=== PATIENT | male | born 1965 | race Hispanic/Latino ===

== ENCOUNTER 2018-05-10 13:39 | Observation (INO) | payer OTHER, BC ==
[2018-05-10 13:39] VITALS: BMI 42.3
[2018-05-10 14:03] LABS: BASO # 0.01 K/mm3 (0.0-2.0); BASO % 0.1 % (0.0-3.0); EOS # 0.2 (0.0-0.7); EOS % 1.6 % (1.5-5.0); GRAN # 6.44 (1.4-6.5); HEMOGLOBIN 14.5 g/dL (14.0-18.0); LYMPH # 3.1 (1.2-3.4); LYMPH % 30.5 % (22.0-35.0); MEAN CELL VOLUME 87.1 fl (80.0-105.0); MEAN CORPUSCULAR HEMOGLOBIN 29.6 pg (25.0-35.0); MEAN PLATELET VOLUME 10.1 fl (7.0-11.0); MONO # 0.5 (0.1-0.6); MONO % 4.8 % (1.0-6.0); RBC 4.9 10^6/uL (3.5-6.1); RED CELL DISTRIBUTION WIDTH 13.2 % (11.5-14.5); WHITE BLOOD COUNT 10.2 10^3/ul (4.5-11.0)
--- NOTE | 2018-05-10 14:17 | RAD ---
Date of service: 05/10/2018 HISTORY: chest pain COMPARISON: No prior. FINDINGS: LUNGS: No active pulmonary disease. PLEURA: No significant pleural effusion identified, no pneumothorax apparent. CARDIOVASCULAR: Normal. OSSEOUS STRUCTURES: No significant abnormalities. VISUALIZED UPPER ABDOMEN: Normal. OTHER FINDINGS: None. IMPRESSION: No active disease.
--- NOTE | 2018-05-10 14:21 | ED PDOC ---
Arrival/HPI - General Chief Complaint: Chest Pain Time Seen by Provider: 05/10/18 13:45 Historian: Patient - History of Present Illness Narrative History of Present Illness (Text): 05/10/18 14:18 Donald Mcdaniel is a 52 year old male, whose past medical history includes hypertension, stress test performed 2-3 years ago, and catherization from 2 years ago, who presents to the Emergency Department complaining of intermittent left sided chest tightness that started 12 hours ago. As per patient, symptoms worsened this morning associated with pins and needles in left arm prior to arrival. Patient informs discomfort with movement of left arm to the right side. Patient informs he took 324 mg of Aspirin with mild relief. Patient denies any fever, chills, shortness of breath, nausea, vomiting, diarrhea, jaw pain, back pain, neck pain, headache, dizziness, or any other complaints. Patient notes occasional drinking, but denies smoking or substance abuse. Patient is right hand dominant. PMD: Dr. Ferreira Switch Operator: Dr. Kurtz and Dr. Osuna Time/Duration: Other (12 hours ) Symptom Onset: Gradual Symptom Course: Unchanged Quality: Tightness Activities at Onset: Light Past Medical History - Provider Review Nursing Documentation Reviewed: Yes - Past History Past History: No Previous - Tetanus Immunization Tetanus Immunization: Unknown - Cardiac Hx Cardiac Disorders: Yes Hx Hypertension: Yes - Pulmonary Hx Respiratory Disorders: No - Neurological Hx Neurological Disorder: No - HEENT Hx HEENT Disorder: No - Renal Hx Renal Disorder: No - Endocrine/Metabolic Hx Endocrine Disorders: No - Hematological/Oncological Hx Blood Disorders: No - Integumentary Hx Dermatological Disorder: No - Musculoskeletal/Rheumatological Hx Musculoskeletal Disorders: No - Gastrointestinal Hx Gastrointestinal Disorders: No - Genitourinary/Gynecological Hx Genitourinary Disorders: No - Psychiatric Hx Psychophysiologic Disorder: No Hx Substance Use: No - Surgical History Hx Musculoskeletal Surgery: Yes (l knee/r ankle) - Anesthesia Hx Anesthesia Reactions: No Hx Malignant Hyperthermia: No - Suicidal Assessment Feels Threatened In Home Enviroment: No Family/Social History - Physician Review Nursing Documentation Reviewed: Yes Family/Social History: Unknown Family HX Smoking Status: Never Smoked Hx Alcohol Use: Yes (occassional) Hx Substance Use: No Hx Substance Use Treatment: No Allergies/Home Meds Allergies/Adverse Reactions: Allergies peanut Allergy (Verified 05/10/18 13:44) ANAPHYLAXIS Home Medications: Home Meds Medication Instructions Recorded Confirmed Valsartan [Diovan] 160 mg PO DAILY 09/24/15 05/10/18 Review of Systems - Physician Review All systems were reviewed & negative as marked: Yes - Review of Systems Constitutional: Normal. absent: Fevers Eyes: Normal ENT: Normal Respiratory: Normal. absent: SOB Cardiovascular: Chest Pain (tightness in left chest) Gastrointestinal: Normal. absent: Abdominal Pain, Diarrhea, Nausea, Vomiting Genitourinary Male: Normal Musculoskeletal: Other (pins and needles in left arm). absent: Back Pain, Neck Pain Skin: Normal Neurological: Normal. absent: Headache Endocrine: Normal Hemo/Lymphatic: Normal Psychiatric: Normal Physical Exam Vital Signs Reviewed: Yes Vital Signs Temp Pulse Pulse Resp BP BP Pulse Ox 05/10/18 16:04 98.0 F 56 L 19 94 L 05/10/18 15:59 98.0 F 60 18 105/66 94 L 05/10/18 13:48 98.2 F 73 18 126/68 96 05/10/18 13:45 63 126/68 Temperature: Afebrile Blood Pressure: Normal Pulse: Regular Respiratory Rate: Normal Appearance: Positive for: Well-Appearing, Non-Toxic, Comfortable Pain Distress: Mild Mental Status: Positive for: Alert and Oriented X 3 - Systems Exam Head: Present: Atraumatic, Normocephalic Pupils: Present: PERRL Extroacular Muscles: Present: EOMI Conjunctiva: Present: Normal Neck: Present: Normal Range of Motion Respiratory/Chest: Present: Clear to Auscultation, Good Air Exchange. No: Respiratory Distress, Accessory Muscle Use Cardiovascular: Present: Regular Rate and Rhythm, Normal S1, S2. No: Murmurs Abdomen: No: Tenderness, Distention, Peritoneal Signs Upper Extremity: Present: Normal Inspection. No: Cyanosis, Edema Lower Extremity: Present: Normal Inspection. No: Edema Neurological: Present: GCS=15, CN II-XII Intact, Speech Normal Skin: Present: Warm, Dry, Normal Color. No: Rashes Psychiatric: Present: Alert, Oriented x 3, Normal Insight, Normal Concentration Medical Decision Making ED Course and Treatment: 05/10/18 14:18 Impression: Donald Mcdaniel is a 52 year old male who presents to the Emergency Department for left sided chest tightness and sharp pain in left arm prior to arrival. Plan: -- EKG -- Labs -- X-Ray of chest -- Aspirin -- Reassess and disposition Prior Visits: Notes and results from previous visits were reviewed. Patient presented to emergency room on 09/24/15 for intermittent chest pain and was admitted to the hospital for observation. Progress Notes: 05/10/18 14:39 EKG: Ordered, reviewed, and independently interpreted the EKG. Rate : 68 BPM Rhythm : NSR Interpretation : No ST-segment elevations or depressions, no T-wave inversions, normal intervals. Normal axis. 05/10/18 14:50 Chest X-Ray reviewed by radiologist, shows: No active disease. - Lab Interpretations Lab Results: 05/10/18 13:55 05/10/18 13:55 Lab Results 05/10/18 13:55: Sodium 145, Potassium 4.2, Chloride 102, Carbon Dioxide 27, Anion Gap 20, BUN 12, Creatinine 0.9, Est GFR ( Amer) > 60, Est GFR (Non- Af Amer) > 60, Random Glucose 107, Calcium 9.9, Magnesium 2.3 H, Total Bilirubin 0.7, AST 25, ALT 31, Alkaline Phosphatase 84, Lactate Dehydrogenase 408, Total Creatine Kinase 151, Troponin I 0.01, Total Protein 8.4 H, Albumin 4.9 H, Globulin 3.4, Albumin/Globulin Ratio 1.4 05/10/18 13:55: WBC 10.2 D, RBC 4.90, Hgb 14.5, Hct 42.7, MCV 87.1, MCH 29.6, MCHC 34.0, RDW 13.2, Plt Count 243, MPV 10.1, Gran % 63.0, Lymph % (Auto) 30.5, [place] % (Auto) 4.8, Eos % (Auto) 1.6, Baso % (Auto) 0.1, Gran # 6.44, Lymph # ( Auto) 3.1, [place] # (Auto) 0.5, Eos # (Auto) 0.2, Baso # (Auto) 0.01 - RAD Interpretation Radiology Orders: 05/10/18 13:49 CHEST PORTABLE [RAD] Stat - EKG Interpretation Interpreted by ED Physician: Yes Type: 12 lead EKG - Medication Orders Current Medication Orders: Acetaminophen (Tylenol 325mg Tab) 650 mg PO Q6H PRN PRN Reason: Fever >100.4 F Alprazolam (Xanax) 0.5 mg PO HS [facility] PRN Reason: Protocol Last Admin: 05/10/18 22:02 Dose: 0.5 mg Behavioural Document 05/10/18 22:02 [facility] (Rec: 05/10/18 22:02 [facility] [id number]) Maintenance Maintenance Dose Yes Behavior Behavior for Medication: Anxiety Aspirin (Ecotrin) 81 mg PO DAILY [facility] Losartan Potassium (Cozaar) 50 mg PO DAILY [facility] Metoprolol Succinate (Toprol Xl) 25 mg PO BRK [facility] Last Admin: 05/10/18 22:01 Dose: 25 mg MAR Pulse and Blood Pressure Document 05/10/18 22:01 [facility] (Rec: 05/10/18 22:02 [facility] [id number]) Pulse Pulse Rate (60-90) 68 Blood Pressure Blood Pressure (100/60-150/90) 136/75 Naproxen (Anaprox Ds) 550 mg PO BID [facility] Last Admin: 05/10/18 22:01 Dose: 550 mg Ondansetron HCl (Zofran Inj) 4 mg IVP Q6H PRN PRN Reason: Nausea/Vomiting Pantoprazole Sodium (Protonix Ec Tab) 40 mg PO 0630 [facility] Discontinued Medications Aspirin (Aspirin) 325 mg PO STAT ST[facility] Stop: 05/10/18 13:49 Last Admin: 05/10/18 14:04 Dose: Not Given Non-Admin Reason: Patient Refused - Scribe Statement The provider has reviewed the documentation as recorded by the Phanibmatt Moreno, training with Taarn Queen. All medical record entries made by the Phanibmatt were at my direction and personally dictated by me. I have reviewed the chart and agree that the record accurately reflects my personal performance of the history, physical exam, medical decision making, and the department course for this patient. I have also personally directed, reviewed, and agree with the discharge instructions and disposition. Disposition/Present on Arrival - Present on Arrival Any Indicators Present on Arrival: No History of DVT/PE: No History of Uncontrolled Diabetes: No Urinary Catheter: No History of Decub. Ulcer: No History Surgical Site Infection Following: None - Disposition Have Diagnosis and Disposition been Completed?: Yes Diagnosis: Chest pain Disposition: HOSPITALIZED Disposition Time: 15:10 Condition: STABLE
[2018-05-10 14:40] LABS: BLOOD UREA NITROGEN 12 mg/dL (7-21); GFR AFRICAN-AMERICAN > 60; GFR NON-AFRICAN AMERICAN > 60
[2018-05-10 14:41] LABS: ALBUMIN 4.9 g/dL (3.0-4.8); CALCIUM 9.9 mg/dL (8.4-10.5)
[2018-05-10 14:42] LABS: ALB/GLOB RATIO 1.4 (1.1-1.8); ALT/SGPT 31 U/L (7-56); AST/SGOT 25 U/L (17-59)
[2018-05-10 14:43] LABS: TROPONIN I 0.01 ng/mL
--- NOTE | 2018-05-10 18:33 | CARD ---
APPROVED REPORT Date of service: 05/10/2018 EKG Measurement Heart [id number] <Conclusion> Normal sinus rhythm Normal ECG
[2018-05-10] MEDS: Naproxen 550 mg Tab PO SCH (22:01)
[2018-05-10] MEDS: Metoprolol Succinate 25 mg XL Tab PO SCH (22:01)
--- NOTE | 2018-05-11 04:28 | CON ---
DATE: 05/10/2018 SERVICE: Cardiology. REASON FOR THE CONSULTATION AND FOLLOWUP: Chest pain, cardiac evaluation. 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 PAST HISTORY: Significant for hypertension, hyperlipidemia, obesity. FAMILY HISTORY: Significant for mother had coronary artery disease at age of 60 and put a stent. Father had congestive heart failure at age of 80, was a smoker. CURRENT MEDICATION: Patient is taking Diovan 160 mg daily, Xanax at the bedtime. SOCIAL HISTORY: Denies any history of alcohol abuse. 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 PREVIOUS CARDIAC WORKUP: As follows. Patient had a cardiac catheterization in 10/2015 because stress test was abnormal because of high profile and patient having chest pain, so underwent cardiac catheterization that revealed essentially normal coronaries, except distal LAD with diffuse , but no flow obstructive stenosis noted, preserved LV with ejection fraction of 55-60%, EDP was in the range of 15 to 18 mmHg. Hypertensive heart disease dated 10/27/2015. RECOMMENDATIONS: Aggressive medical treatment, emphasis weight reduction and medical treatment was recommended, dated 10/27/2015. Previous cardiac workup as follows. Patient had a cardiac catheterization on 10/27/2015 that showed essentially normal coronary. Patient had echocardiography done on 09/25/2015 that revealed normal chamber size, ejection fraction 55%, trace FL, trace TR, RV systolic pressure 32. REVIEW OF SYSTEMS: As per HPI. CURRENT MEDICATIONS: Patient is taking valsartan (Diovan) 160 mg. ALLERGIES: No known drug allergy. PHYSICAL EXAMINATION: As follows. VITAL SIGNS: Height of the patient is 5 feet . Weight of the patient is 285 pounds. Body mass index 40.99 kg/m2. Rest of the examination shows temperature afebrile, heart rate 72, blood pressure 118/79. HEENT: PERRLA. Extraocular muscles are intact. NECK: Supple. No carotid bruit or thyromegaly. CHEST: Clear to auscultation. HEART: S1 and S2 regular. ABDOMEN: Soft. EXTREMITIES: Clubbing and cyanosis negative. LABORATORY DATA: Blood workup as follows: WBC 10.8, hemoglobin 14.5, hematocrit 42.7, platelet count 243. Chemistry showed sodium 145, potassium 4.2, chloride , carbon dioxide 27, anion gap of 20, BUN 12, creatinine 0.9. Troponin is 0.01. EKG; normal sinus, no acute ST-T changes noted. 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 Denies any diaphoresis. History of cardiac catheterization 2 years ago with essentially normal coronaries, history of hypertension. Given the risk factor and profile, patient was suggested echo and stress test. The troponin remains negative. We will get the serial troponins. If the troponin is negative, we will subject to stress test. We will get lipid profile, TSH, and hemoglobin A1c. We will follow with you. Thank you Dr. Lam for providing us the opportunity in taking of the patient, Donald Mcdaniel. Felix Kurtz MD
[2018-05-11] MEDS ORDERED: Pantoprazole 40 mg EC Tab PO SCH (06:30)
[2018-05-11 07:27] LABS: ALB/GLOB RATIO 1.4 (1.1-1.8); ALBUMIN 4.2 g/dL (3.0-4.8); ALT/SGPT 22 U/L (7-56); AST/SGOT 25 U/L (17-59); BLOOD UREA NITROGEN 15 mg/dL (7-21); CALCIUM 9.3 mg/dL (8.4-10.5); GFR AFRICAN-AMERICAN > 60; GFR NON-AFRICAN AMERICAN > 60; HDL CHOLESTEROL 28 mg/dL (29-60)
[2018-05-11 07:43] LABS: FREE T4 1.02 ng/dL (0.78-2.19)
[2018-05-11 07:44] LABS: LDL CHOLESTEROL 107 mg/dL (0-129)
[2018-05-11] MEDS: Metoprolol Succinate 25 mg XL Tab PO SCH (08:16)
--- NOTE | 2018-05-11 08:17 | HP ---
HISTORY OF PRESENT ILLNESS: The patient is 52 years old came to emergency room because of increasing chest discomfort, more on the left side, radiating toward the arm with some pins and needle in the hand and in the arm. The patient states the pain is more upon movement and associated with some sweating. Denies any fever or chills. No history of cough or congestion. No hemoptysis. No hematemesis. PAST MEDICAL HISTORY: Significant for; 1. Hypertension. 2. Hyperlipidemia. FAMILY HISTORY: Significant for mom having coronary artery disease. MEDICATIONS AT HOME: He is on Diovan 160 mg daily and Xanax at bedtime. SOCIAL HISTORY: Denies smoking, drinking or alcohol use. 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 The patient had cath done in 10/[address] Kurtz and he has no obstructed coronaries. His distal LAD had diffuse tapering, but no flow obstruction. Ejection fraction was 56%. ALLERGIES: HE IS ALLERGIC TO PEANUTS. MEDICATIONS AT HOME: He is on valsartan 160 mg daily. REVIEW OF SYSTEMS: Significant for left sided chest pain, pins and needles, more with movement. PHYSICAL EXAMINATION: GENERAL: He is awake, alert, oriented, and communicative. VITAL SIGNS: Afebrile. Pulse 72, respirations 21, blood pressure 118/79. LUNGS: Bilateral good airflow. No rhonchi or crackles. HEART: S1, S2 audible. ABDOMEN: Soft, nontender. No rebound. No guarding. NEUROLOGIC: The patient is awake, alert, oriented, able to communicate. LABORATORY EXAM: WBC 10.2, hemoglobin 14, hematocrit 42.7, platelets 243. Chemistry: Sodium 145, potassium 4.2, chloride 102, CO2 27. BUN 12, creatinine 0.9. Blood sugar of 107. Magnesium 2.3. Total bili 0.7. AST 24, ALT 31, total protein 8.4, albumin 4.9. X-ray of chest is unremarkable. EKG shows no sinus rhythm. ASSESSMENT: 1. Chest pain, rule out coronary artery disease. 2. Hypertension. 3. Obesity. 4. Hyperlipidemia. PLAN: Patient will be placed in observation. We will follow up cardiac enzymes. Given Naprosyn, started aspirin, beta-justina, Protonix. Cardiology consult by Dr. Kurtz has been requested. We will follow up the patient. Mini Lam MD [facility] # [id number]
[2018-05-11 08:47] VITALS: TEMP 98.2; O2SAT 98
[2018-05-11 09:12] LABS: TROPONIN I < 0.01 ng/mL
--- NOTE | 2018-05-11 09:45 | CP.PCM.PN ---
Subjective - Date & Time of Evaluation Date of Evaluation: 05/11/18 Time of Evaluation: 06:40 - Subjective Subjective: Sleeping but easily awaken, denies chest pain, for stress test today Reason for consultation and follow up : Cardiac evaluation of chest pain, history of hypertension, hyperlipidemia, obesity Seen and examined by me and Dr. Kurtz Objective - Vital Signs/Intake and Output Vital Signs (last 24 hours): Temp Pulse Resp BP Pulse Ox 98.2 F 56 L 22 96/57 L 98 05/11/18 06:00 05/11/18 08:16 05/11/18 06:00 05/11/18 08:16 05/11/18 06:00 Intake and Output: 05/11/18 05/11/18 06:59 18:59 Intake Total 0 Output Total 725 Balance -725 - Medications Medications: Current Medications Acetaminophen (Tylenol 325mg Tab) 650 mg PO Q6H PRN PRN Reason: Fever >100.4 F Alprazolam (Xanax) 0.5 mg PO [facility] PRN Reason: Protocol Last Admin: 05/10/18 22:02 Dose: 0.5 mg Aspirin (Ecotrin) 81 mg PO DAILY [facility] Losartan Potassium (Cozaar) 50 mg PO DAILY [facility] Metoprolol Succinate (Toprol Xl) 25 mg PO BRK [facility] Last Admin: 05/11/18 08:16 Dose: Not Given Naproxen (Anaprox Ds) 550 mg PO BID [facility] Last Admin: 05/10/18 22:01 Dose: 550 mg Ondansetron HCl (Zofran Inj) 4 mg IVP Q6H PRN PRN Reason: Nausea/Vomiting Pantoprazole Sodium (Protonix Ec Tab) 40 mg PO 0630 [facility] Last Admin: 05/11/18 07:17 Dose: 40 mg - Labs Labs: 05/11/18 06:00 - Constitutional Appears: No Acute Distress - Eye Exam Eye Exam: Normal appearance - ENT Exam ENT Exam: Mucous Membranes Moist - Respiratory Exam Respiratory Exam: Clear to Ausculation Bilateral, NORMAL BREATHING PATTERN - Cardiovascular Exam Cardiovascular Exam: REGULAR RHYTHM, +S1, +S2 Additional comments: bradycardia when sleeping 40's - GI/Abdominal Exam GI & Abdominal Exam: Soft, Normal Bowel Sounds - Extremities Exam Extremities Exam: Normal Capillary Refill - Neurological Exam Neurological Exam: Alert, Awake, Oriented x3 - Psychiatric Exam Psychiatric exam: Normal Affect - Skin Skin Exam: Dry, Intact, Warm Assessment and Plan - Assessment and Plan (Free Text) Assessment: A 52 year old male , rakesh, who came in to the ER due to left sided chest pain. history of hypertension,hyperlipidemia, obesity. left knee surgery and right ankle surgery. Had similar complaints 2 years ago (10/2015) and work up revealed positive stress test, cardiac cath was done and essentially normal coronaries except distal LAD with diffuse disease. He was treated medically. atypical chest pain. troponin normal. For stress test. Plan: For stress test today Atypical chest pain Normal troponins On ASA 81 mg daily,Cozaar 50 mg daily, Toprol XL 25 mg daily Continue current treatment Continue current medications Will follow up Plan and treatment discussed with Dr. Jerardo Hodgson
[2018-05-11] MEDS: Naproxen 550 mg Tab PO SCH (11:20)
[2018-05-11 11:36] VITALS: BP 112/76; RESP 18
[2018-05-11 12:02] VITALS: PULSE 75
--- NOTE | 2018-05-11 15:53 | CARD ---
APPROVED REPORT Date of service: 05/11/2018 Protocol: JORGE Test Type: Sestamibi Stress Test Attending Physician: Dr. Felix Osuna Referring Physician: Dr. Mini Lam Test Indications: Chest Pain Height:5 ft 10 in Weight:285lbs Medications: Xanax,Cozaar,Toprol, Protonix, Anaprox Medical History: 52 y/o male. Hx of chest pain,hypertension,high cholesterol,family hx of heart disease. Target HR: 167 bpm Resting ECG: RSR. Resting Heart Rate: 58 bpm Resting Blood Pressure: 120/80mmHg Submaximum (85%): 142 bpm POST EXERCISE Reason for Termination: Fatigue Target HR: No Max HR: 160 bpm 95% of Maximum Predicted HR: 167 bpm Exercise duration: 10:23 min:sec, 4 Stage Exercise capacity: 12.5METs Max Blood Pressure: 180/80mmHg Blood Pressure response to exercise: normal resting BP - appropriate response Heart Rate response to exercise: appropriate Chest Pain: No, none Angina index: 0 Arrhythmia: No, none ST Change: No, none Deviation: 0 mm TEST SUMMARY [id number]/.0. [id number]/80.0. PRETESTHYPERV.00:[id number]/80.0. PRETESTWARM-UP00:[id number]/.0. EXERCISESTAGE 103:[id number]/80.0. EXERCISESTAGE 203:[id number]/80.0. EXERCISESTAGE 303:[id number]/80.1. EXERCISESTAGE 401:[id number]/80.0. [id number]:[id number]/80.0. INTERPRETATION Stress EKG Conclusion: MYOVIEW NUCLEAR STRESS TEST STOPPED AFTER 10 MINUTES AND23 SECONDS OF JORGE PROTOCOL DUE TO KNEE PAIN. PATIENT ACHIEVED 95% OF PREDICTED HEART RATE. NO CHEST PAIN. NO ST-T CHANGES. NUCLEAR SCAN REPORT PENDING. Signed by Felix Osuna Electronically Approved: 05/11/2018 10:51:38 EXAM: Myocardial Perfusion REST/STRESS Stress Test Type: Exercise Treadmill Imaging Protocol Rest Spect myocardial perfusion imaging was performed in supine position 45 minutes following the injection of 10.3 mCi of Tc-99 Myoview. At peak stress, the patient was injected intravenously with 30.8mCi of Tc-99 tetrofosmin after an exercise time of 10 minutes and 23 seconds. Gated Stress Spect was performed 65 minutes after intravenous Tc-99 Myoview injection. The images were gated to evaluate regional wall motion and calculate ventricular ejection fraction.Images were reconstructed using backfilter projection method in short horizontal and verticle long axis. Spect slices were generated. LV Perfusion The quality of the study is good. The left ventricle is mildly enlarged in the thickened myoardium. The right ventricle is unremarkable. The lung uptake is within normal limits. The distribution of tracer reveals normal uptake pattern throughout the LV myocardium on the stress study. The rest myocardial perfusion study shows no significant change. Wall Motion Wall motion study shows good contractility of the left ventricle. LVEF = 53%. Conclusion 1. Normal SPECT myocardial perfusion study. 2. Normal gated wall motion of the left ventricle.
--- NOTE | 2018-05-11 17:35 | CARD ---
APPROVED REPORT Date of service: 05/11/2018 EXAM: Two-dimensional and M-mode echocardiogram with Doppler and color Doppler. INDICATION Chest Pain 2D DIMENSIONS Left Atrium (2D)3.7 (1.6-4.0cm)IVSd0.9 (0.7-1.1cm) LVDd5.7 (3.9-5.9cm)PWd0.8 (0.7-1.1cm) LVDs4.2 (2.5-4.0cm)FS (%) 27.7 % LVEF (%)53.1 (>50%) M-Mode DIMENSIONS Aortic Root2.90 (2.2-3.7cm)Aortic Cusp Exc.2.20 (1.5-2.0cm) Aortic Valve AoV Peak Lxbrwhwz507.0cm/Sherly Peak GR.7mmHg Mitral Valve MV E Knydospm75.7cm/sMV A Bvzaeozv38.8cm/sE/A ratio1.4 TDI E/Lateral E'0.0E/Medial E'0.0 Tricuspid Valve TR Peak [id number]/sRAP [id number] Peak Gr.20mmHg [id number] LEFT VENTRICLE The left ventricle is normal size. There is normal left ventricular wall thickness. The left ventricular function is normal.EF-55% There is normal LV segmental wall motion. The left ventricular diastolic function is normal. No left ventricle thrombus noted on this study. There is no ventricular septal defect visualized. There is no left ventricular aneurysm. There is no mass noted in the left ventricle. RIGHT VENTRICLE The right ventricle is normal size. There is normal right ventricular wall thickness. The right ventricular systolic function is normal. ATRIA The left atrium size is normal. The right atrium size is normal. The interatrial septum is intact with no evidence for an atrial septal defect. AORTIC VALVE The aortic valve is normal in structure. No aortic regurgitation is present. There is no aortic valvular stenosis. There is no aortic valvular vegetation. MITRAL VALVE The mitral valve is thickened but opens well. Mitral regurgitation is trace. There is no mitral valve stenosis. There is no evidence of mitral valve prolapse. TRICUSPID VALVE The tricuspid valve leaflets are thickened , but open well. There is mild tricuspid regurgitation.RVS-30 mmof hg. There is no tricuspid valve stenosis. There is no tricuspid valve prolapse or vegetation. PULMONIC VALVE The pulmonary valve is normal in structure. There is trace pulmonic valvular regurgitation. There is no pulmonic valvular stenosis. GREAT VESSELS The aortic root is normal in size. The ascending aorta is normal in size. The pulmonary artery is normal. The IVC is normal in size and collapses >50% with inspiration. PERICARDIAL EFFUSION There is no pleural effusion. There is no pericardial effusion. <Conclusion> Normal chamber Size. Ef-55% Trace MR/PI Mild TR, RVSP-30 mmof hg.
--- NOTE | 2018-05-12 03:58 | DS ---
HISTORY OF PRESENT ILLNESS: The patient is 52 years old who came in with chest pain, diaphoresis and chest pressure, seen in Cardiology Department. He states he feels a lot better. He does have significant family history of dad having heart attack, although he is 80 years old and mom also had angioplasty. PHYSICAL EXAMINATION GENERAL: Currently on examination, he is awake, alert, oriented, communicative. VITAL SIGNS: He is afebrile, pulse 70, respiration 18, blood pressure 112/76. LUNGS: Bilateral fair airflow. No rhonchi or crackle. HEART: S1 and S2 audibile. ABDOMEN: Soft, nontender. No rebound. No guarding. NEUROLOGIC: He is awake, alert, oriented, communicative. Moves all extremities. No leg edema. LABORATORY DATA: His sodium 144, potassium 4.1, chloride 103, CO2 of 30, BUN 15, creatinine 0.9, blood sugar of 103, magnesium 2.4. troponin are negative. Triglycerides 185. ASSESSMENT: 1. Seems to be noncardiac chest pain. 2. Morbid obesity. 3. Hypertension. PLAN: We will follow up his exercise stress test and nuclear scan. 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 Nuclear scan can be followed as outpatient. Mini Lam MD
== END 2018-05-11 14:22 | disposition home or self-care (01) ==
LOC: ED 13:39 → ERH 15:02 → 2RNO 16:24
PROVIDERS: ADMIT Internal Medicine; ATTEND Internal Medicine
DX: R07.89 Other chest pain (principal); E78.5 Hyperlipidemia, unspecified; I11.9 Hypertensive heart disease without heart failure; E66.01 Morbid (severe) obesity due to excess calories; Y99.0 Civilian activity done for income or pay; Z82.49 Family history of ischemic heart disease and other diseases of the circulatory system; Z91.010 Allergy to peanuts; Z68.41 Body mass index [BMI] 40.0-44.9, adult
CPT/HCPCS: 36415; 71045; 78452; 80053; 80061; 82550; 83615; 83735; 84100; 84439; 84443; 84484; 85025; 93005; 93017; 93306; 99285; A9502; G0378